=== PATIENT | male | born 1975 | race Caucasian/White ===

== ENCOUNTER → 2016-09-29 | Day surgery (SDC) | payer OTHER ==
[~2016-09-29] VITALS: Ht 180.3 cm; Wt 68.0 kg
--- NOTE | 2016-10-01 11:22 | Operative Report ---
Operative/Inv Procedure Report Surgery Date: 09/29/16 Name of Procedure: Laparoscopic preperitoneal mesh repair of left inguinal hernia Pre-Operative Diagnosis: Left inguinal hernia Post-Operative Diagnosis: Same, indirect Estimated Blood Loss: scant Surgeon/Communications Program Manager: JEREMY MANZANARES,MARK FYA Anesthesia: general endotracheal tube Operative/Procedure Note Note: Patient was positioned supine on the table. After successful induction of general anesthesia the inguinal and surrounding areas were clipped prepped and draped in the usual sterile fashion. After injection of local anesthetic at the bottom of the umbilicus off the midline to the left a 1 1/2 cm curved incision was made with a 15 blade, then deepened through Shelley's fascia, sweeping off the rectus sheath. A horizontal 1-1/2 cm incision was made between the fibers, elevating these edges with 0 Vicryl stay sutures. Then retracting the muscle laterally, clearing off the posterior rectus sheath, this space is developed down the midline to the pubis sequentially, with an S retractor, a peanut dissector, then the balloon-camera device, inflating it 30-40 pumps while watching how it opens up the space, keeping the epigastrics up. The balloon is then replaced with a 10 mm Cox trocar, inserted, shortened, and secured with the stay sutures, gas turned on to 12 not 15 mm. Then two 5 mm trochars are inserted in the midline just below the camera, spaced by approximately 3 cm. Using mostly blunt dissection with peanuts to define the anatomy, first Kwesi's ligament is swept off medially, checking the medial spaces, direct and femoral. There were no hernias there. Then briefly skipping over the area of the iliac fat pad, we developed the iliopubic tract out laterally to the iliac crest. Then we returned to the area of the fat pad where the hernia sac and the cord structures are adherent, coursing up into an attenuated deep ring. The cord structures form a triangle with the vas approaching medially and the main vessels approaching laterally, with the apex at the deep ring. There was some preperitoneal fat up inside in front that was dragged down and out, helping identify the distal lip of the hernia sac, it was long and tenacious, which is then carefully peeled off the cord structures, especially the vas. The cord is also from the underlying iliac fat. Once the hernia sac is from the cord structures down to the base of this "triangle," a Parietex sided mesh with the suture, is marked and stuffed down the camera trocar, then unfurled in a systematic fashion, first with the smaller leaflet passing behind the cord structures, until the flap covers the epigastrics, covering the deep ring, then the larger leaflet is released from the suture, double-covering the smaller one, but also extends laterally out to the iliac crest, medially over Kwesi's ligament, and superiorly towards the camera. There is a third part of the mesh, that covers the iliac fat pad like a skirt. The mesh was adjusted back and forth so that the keyhole is centered around the cord, lays flat and the edges are not curling. A trial run of letting the gas escape a little bit to see how the mesh would lay as the peritoneum comes back down is done, then when we' re satisfied, we let rest of the gas escape, pulling out the instruments and trochars. The fascia is closed with a [id number] 0 Vicryl suture, tying the stay sutures on top. Then we closed the 3 skin incisions with interrupted 4-0 Monocryl, 3 for the umbilical, one each for the smaller ones, followed by Mastisol, Steri-Strips and Band-Aids. Overall estimated blood loss was minimal, lap and sponge counts were correct, wound expectancy was clean, IV fluids crystalloid, complications none, patient tolerated the procedure well, he was quite active after extubation and was returned to the recovery room in satisfactory condition, at that time I didn't palpate a recurrence.
== END ==
LOC: STS 02:12
DX: K40.90 Unilateral inguinal hernia, without obstruction or gangrene, not specified as recurrent (principal); F17.200 Nicotine dependence, unspecified, uncomplicated
CPT/HCPCS: C1781; J0690; J2250

== ENCOUNTER 2016-10-10 17:19 | Emergency (ER) | payer OTHER ==
[~2016-10-10] VITALS: Ht 180.3 cm; Wt 70.3 kg
[2016-10-10 17:21] VITALS: BP 135/75
--- NOTE | 2016-10-10 17:57 | ED GI/GU/ABDOMINAL COMPLAINT ---
History of Present Illness General Chief Complaint: Abdominal Pain/Flank Pain Stated Complaint: ? STRANGULATED HERNIA Source: patient Exam Limitations: no limitations Vital Signs & Intake/Output Vital Signs & Intake/Output Vital Signs Date Time Temp Pulse Resp B/P B/P Pulse O2 O2 Flow FiO2 Mean Ox Delivery Rate 10/10 1721 98.7 70 20 135/75 98 Room Air Allergies Coded Allergies: No Known Allergies (09/25/16) Reconcile Medications No Known Home Medications Triage Note: PT TO ED C/O BUMP IN TESTICLE. PT IS S/P LAPROSCOPIC HERNIA REPAIN WITH MESH HERE ON 09/29. STATES TODAY AFTER HIS SHOWER HE NOTICED A "BUMP" IN HIS TESTICLE. PT STATES "I THINK I HAVE A STRANGULATED HERNIA". Triage Nurses Notes Reviewed? yes Onset: Abrupt Duration: hour(s): Timing: single episode today Quality/Severity: mild Location: groin (left) Prior Abdominal Problems: L inguinal hernia repain 09/29/16 HPI: 41-year-old male with history of left inguinal hernia status post repair on 01/[address] Hinojosa presents to emergency department complaining of lump inguinal area noticed today. Patient states that following his surgery he was doing well, did not have pain or skin gages or lump, today in the shower he noticed new lump in his inguinal area as well as his left testicle. He states he feels discomfort in that area as if he "Knows something is there"and he rates it at about 2-3/10 on pain scale. He denies fevers, chills, abdominal pain, nausea, vomiting, diarrhea, constipation. (ANALI BRAGA,DEION ARMANDO) Past History Travel History Traveled to [place] past 21 day No Medical History Any Pertinent Medical History? see below for history Gastrointestinal: Left inguinal hernia Surgical History Surgical History: hernia repair-inguinal (Left on 09/29/16) Psychosocial History What is your primary language Thai Tobacco Use: Current Daily Use Daily Tobacco Use Amount/Type: => 5 Cigarettes daily ETOH Use: denies use Illicit Drug Use: denies illicit drug use Family History Hx Contributory? No (DEION BRIONES PA-C) Review of Systems Review of Systems Constitutional: Reports: no symptoms. EENTM: Reports: no symptoms. Respiratory: Reports: no symptoms. Cardiovascular: Reports: no symptoms. GI: Reports: see HPI. Genitourinary: Reports: see HPI. Musculoskeletal: Reports: no symptoms. Skin: Reports: no symptoms. Neurological/Psychological: Reports: no symptoms. Hematologic/Endocrine: Reports: no symptoms. Immunologic/Allergic: Reports: no symptoms. All Other Systems: Reviewed and Negative (DEION BRIONES PA-C) Physical Exam Physical Exam Gastrointestinal: SEE BELOW Comments: Well-developed well-nourished person in no acute distress HEENT: HEAD is atraumatic, normocephalic Neck: Supple,, normal range of motion without pain or tenderness Back: Nontende, Full range of motion Cardiovascular: Regular rate and rhythms no murmurs rubs or gallops Respiratory: No respiratory distress. Patient speaking in full complete sentences. Breath sounds clear to auscultation bilaterally: NO W/R/R Abdomen: Soft, nontender nondistended, no appreciable organomegaly. Normal bowel sounds. No rebound/guarding, No appreciable enlargement of the abdominal aorta, No ascites. Genitals: left inguinal buldge, soft, left testicular buldge, soft reducible, nontender Extremity: No edema, full range of motion of extremities, Neuro: Alert oriented x3, motor sensory normal, There were no obvious focal neurologic abnormalities. Skin: No appreciable rash on exposed skin, skin is warm and dry. Psych: Mood and affect is normal, memory and judgment is normal. Core Measures ACS in differential dx? No Severe Sepsis Present: No Septic Shock Present: No (DEION BRIONES PA-C) Progress Differential Diagnosis: hernia, orchitis, varicocele, epididymitis, incarcerated hernia Plan of Care: Orders Procedure Date/time Status COMPREHENSIVE METABOLIC PANEL 10/10 1752 Active CBC WITHOUT DIFFERENTIAL 10/10 1752 Complete Laboratory Tests 10/10/16 1819: Sodium Pending, Potassium Pending, Chloride Pending, Carbon Dioxide Pending, Anion Gap Pending, BUN Pending, Creatinine Pending, BUN/Creatinine Ratio Pending , Glucose Pending, Calcium Pending, Total Bilirubin Pending, AST Pending, ALT Pending, Alkaline Phosphatase Pending, Total Protein Pending, Albumin Pending, Globulin Pending, Albumin/Globulin Ratio Pending, CBC w Diff NO MAN DIFF REQ, RBC 4.30 L, MCV 92.5, MCH 31.6 H, RDW 13.3, MPV 6.4 L, Gran % 58.0, Lymphocytes % 29.9, Monocytes % 5.6, Eosinophils % 5.6 H, Basophils % 0.9, Absolute Granulocytes 4.6, Absolute Lymphocytes 2.4, Absolute Monocytes 0.4, Absolute Eosinophils 0.4, Absolute Basophils 0.1, PUBS MCHC 34.[address] Neumann regarding patient. Will obtain CT scan to assess for inguinal hernia. 7:18PM - spoke with Dr. Rocha regarding patient and CT scan results. He confirms that this is normal postoperative fluid from inguinal hernia repair on 09/29 and that it can be normal to begin 1-2 weeks following surgery. He states to reassure patient and have patient follow-up with Olaf Espinoza MD in the office this week. Imaging results and lab work discussed with patient in detail. The patient was instructed to follow-up with Olaf Espinoza MD in the office this week. The patient is in agreement with the plan of care. He is in no acute distress, his vital signs are stable, he is nontoxic appearing. (ANALI BRAGA,DEION ARMANDO) Diagnostic Imaging: Viewed by Me: CT Scan. Discussed w/RAD: CT Scan. Radiology Impression: PATIENT: BEAU HAWLEY PRESENT AGE: 41 PATIENT ACCOUNT NO: [id number] : 76 LOCATION: [facility] ORDERING PHYSICIAN: DEION BRIONES PA-C SERVICE DATE: 10/10/16 EXAM TYPE: CAT - CT ABD & PELVIS W/O IV CONTRAS EXAMINATION: CT ABDOMEN AND PELVIS WITHOUT CONTRAST CLINICAL INFORMATION: Inguinal bulge. COMPARISON: None TECHNIQUE: Multidetector volumetric imaging was performed from the superior aspect of the liver through the pubic symphysis. Sagittal and coronal reformatted images were obtained on the technologist's workstation. DLP: 302.53 mGy-cm FINDINGS: LUNG BASES: The visualized lung bases are unremarkable. LIVER, GALLBLADDER, AND BILIARY TREE: The liver is normal in size, shape, and attenuation. 1.2 cm hypodense lesion with sharply margins most likely due to a hepatic cyst at the central right lobe of liver, axial image 146 (3). No suspicious liver lesion. The gallbladder is unremarkable with no evidence of radiopaque gallstones, gallbladder wall thickening, or obvious pericholecystic inflammatory changes. PANCREAS: Unremarkable. SPLEEN: Unremarkable. ADRENAL GLANDS: Unremarkable. KIDNEYS AND URETERS: The kidneys are normal in size, shape , and attenuation. No hydronephrosis, hydroureter, or calculi seen. No perinephric stranding. BLADDER: Unremarkable. GASTROINTESTINAL TRACT: The small and large bowel are unremarkable. The appendix is normal. No inflammation the mesentery. ABDOMINAL WALL: There is a left inguinal hernia. This contains fluid and fat. Hernia measures 4.2 cm transverse by 1.8 cm AP. LYMPH NODES: Normal. VASCULAR: Unremarkable. PELVIC VISCERA: Unremarkable. OSSEOUS STRUCTURES: Vacuum disc phenomenon L5-S1 with disc height narrowing and endplate sclerosis and small spurs of the vertebrae. IMPRESSION: Left inguinal hernia containing fat and fluid. DICTATED BY: MAREN RUVALCABA MD DATE/TIME DICTATED:10/10/161813 TRANSPORTATION DIRECTOR:JEFF DATE/TIME TRANSCRIBED:10/10/161813 CONFIDENTIAL, DO NOT COPY WITHOUT APPROPRIATE AUTHORIZATION. <Electronically signed in Other Vendor System> SIGNED BY: MAREN RUVALCABA MD 10/10/161828 Initial ED EKG: none (ANALI BRAGA,DEION ARMANDO) Departure Departure Disposition: HOME OR SELF CARE Condition: Stable Clinical Impression Primary Impression: Lump in the groin Referrals: PATIENT HAS NO PRIMARY CARE DR (PCP/Family) Additional Instructions: As discussed, follow-up with Olaf Espinoza MD in the office this week. Take Tylenol or Motrin as prescribed as needed for pain. Return with any worsening symptoms or concerns. Please note that there might be incidental findings in your evaluation that are unrelated to the current emergency department visit. Please notify your primary care doctor about this emergency department visit in order to obtain and review all of the testing performed so that these incidental findings can be monitored as needed. If you had an x-ray performed, please understand that some fractures may not be seen on the initial set of x-rays. If your symptoms persist you might need a repeat set of x-rays to check for such a fracture. If you're unable to follow up as outlined in the discharge instructions please return to the emergency department. Thank you for choosing the [facility] Emergency Department for your care. It was a pleasure to serve you today. Departure Forms: Customer Survey General Discharge Information Prescriptions: Current Visit Scripts No Known Home Medications (ANALI BRAGA,DEION ARMANDO) PA/BANK OFFICER Co-Sign Statement Statement: ED Attending supervision documentation- I saw and evaluated the patient. I have also reviewed all the pertinent lab results and diagnostic results. I agree with the findings and the plan of care as documented in the PA's/BANK OFFICER's documentation. x I have reviewed the ED Record and agree with the PA's/BANK OFFICER's documentation. [] Additions or exceptions (if any) to the PAs/BANK OFFICER's note and plan are summarized below: [] (HALLIE MANZANARES,LYLE)
--- NOTE | 2016-10-10 18:29 | CT SCAN REPORT ---
EXAMINATION: CT ABDOMEN AND PELVIS WITHOUT CONTRAST CLINICAL INFORMATION: Inguinal bulge. COMPARISON: None TECHNIQUE: Multidetector volumetric imaging was performed from the superior aspect of the liver through the pubic symphysis. Sagittal and coronal reformatted images were obtained on the technologist's workstation. DLP: 302.53 mGy-cm FINDINGS: LUNG BASES: The visualized lung bases are unremarkable. LIVER, GALLBLADDER, AND BILIARY TREE: The liver is normal in size, shape, and attenuation. 1.2 cm hypodense lesion with sharply margins most likely due to a hepatic cyst at the central right lobe of liver, axial image 146 (3). No suspicious liver lesion. The gallbladder is unremarkable with no evidence of radiopaque gallstones, gallbladder wall thickening, or obvious pericholecystic inflammatory changes. PANCREAS: Unremarkable. SPLEEN: Unremarkable. ADRENAL GLANDS: Unremarkable. KIDNEYS AND URETERS: The kidneys are normal in size, shape, and attenuation. No hydronephrosis, hydroureter, or calculi seen. No perinephric stranding. BLADDER: Unremarkable. GASTROINTESTINAL TRACT: The small and large bowel are unremarkable. The appendix is normal. No inflammation the mesentery. ABDOMINAL WALL: There is a left inguinal hernia. This contains fluid and fat. Hernia measures 4.2 cm transverse by 1.8 cm AP. LYMPH NODES: Normal. VASCULAR: Unremarkable. PELVIC VISCERA: Unremarkable. OSSEOUS STRUCTURES: Vacuum disc phenomenon L5-S1 with disc height narrowing and endplate sclerosis and small spurs of the vertebrae. IMPRESSION: Left inguinal hernia containing fat and fluid.
[2016-10-10 18:32] LABS: ABSOLUTE BASOPHIL COUNT 0.1 /CUMM (0.0-0.2); ABSOLUTE EOSINOPHIL COUNT 0.4 /CUMM (0.0-0.7); ABSOLUTE GRANULOCYTE CT 4.6 /CUMM (1.4-6.5); ABSOLUTE LYMPH COUNT 2.4 /CUMM (1.2-3.4); ABSOLUTE MONOCYTE COUNT 0.4 /CUMM (0.10-0.60); BASOPHIL % 0.9 % (0.0-2.0); EOSINOPHIL % 5.6 % (0-5); HEMATOCRIT 39.8 % (42-52); MEAN CORPUSCULAR HGB 31.6 PG (27.0-31.0); MEAN CORPUSCULAR HGB CONC 34.2 G/DL (33.0-37.0); MEAN CORPUSCULAR VOLUME 92.5 FL (80.0-94.0); MEAN PLATELET VOLUME 6.4 FL (7.4-10.4); PLATELET COUNT 246 /CUMM (130-400); RBC DISTRIBUTION WIDTH 13.3 % (11.5-14.5)
== END 2016-10-10 19:58 ==
LOC: ERH 17:19
PROVIDERS: Physician Assistant
DX: R19.09 Other intra-abdominal and pelvic swelling, mass and lump (principal)
CPT/HCPCS: 74176

== ENCOUNTER → 2017-10-19 | Day surgery (SDC) | payer OTHER ==
[~2017-10-19] VITALS: Ht 152.4 cm; Wt 72.6 kg
[~2017-10-19] MED LIST: PERCOCET 5-3251 EACH PO
--- NOTE | 2017-10-19 11:24 | Operative Report ---
Operative/Inv Procedure Report Surgery Date: 10/19/17 Name of Procedure: Robotic laparoscopic mesh repair of right inguinal hernia Pre-Operative Diagnosis: Right inguinal hernia Post-Operative Diagnosis: Same, indirect Estimated Blood Loss: scant Surgeon/Musical String Maker: Olga MANZANARES,Olaf FAY Anesthesia: general endotracheal tube Operative/Procedure Note Note: Patient was positioned supine. After successful induction of general anesthesia , the abdomen was prepped and draped in usual sterile fashion, based on body habitus we aimed our 3 trocar sites to be in the mid-epigastrium: the middle and 2 bilateral, aiming to the right lower quadrant, local anesthetic was injected in a spot left lateral subcostal, a 1 cm incision was made with a 15 blade and then using a 5 mm optical trocar inserted into the 8 mm robotic trocar, attached to a 5 mm camera and the trocar was advanced through the abdominal wall watching on the screen, as the trocar passes through the layers, alternating colors, yellow fat white fascia red muscle, until the tip just seems to keller the inner thin peritoneal layer. At that point, I stop pushing and check if it's open by turning on the gas. If the belly insufflates then you know you can advance the trocar into an empty space more directly without injuring the viscera into the peritoneum and then the gas was turned on to 15 mm. We placed the other two 8 mm robotic trochars while watching with the camera bilaterally roughly in the same line, symmetrically.Then the Robot was moved to the patient, then docked and targeted. At this point you could see the right inguinal hernia, (and also the left sided repair which was intact) with adherent fat going up into the defect. We then developed / started the peritoneal flap horizontally at the level of the iliac crest starting laterally to medial to umbilical ligament with cautery and then dissected within the flap the inguinal anatomy. Using mostly blunt dissection with a bipolar fenestrated grasper and a scissors, first Kwesi's ligament is swept off medially, checking the medial spaces, direct and femoral. There were no hernias there. Then briefly skipping over the area of the iliac fat pad, we developed the iliopubic tract out laterally to the iliac crest. Then we returned to the area of the fat pad, laterally where the hernia sac and cord structures were adherent, coursing up into an attenuated deep ring. There was some preperitoneal fat up inside in front that was dragged down and out, along with the lip of the peritoneal sac down off the cord structures which form a triangle, blood vessels approaching laterally the vas medially with the apex at the deep ring, it was an attenuated sac but we did not put a hole in it. Once the hernia sac is from the vas / cord down to the below Kwesi's medially at the bladder, and laterally the iliopubic tract below this, a Parietex sided mesh without the keyhole or the suture, is marked and stuffed down the camera trocar, then unfurled in a systematic fashion, to cover both the hernia and the direct spaces and to make sure its tucked below Kwesi's ligament and in that crevice Retzius space by the bladder and laterally beneath the iliopubic tract without curling and superiorly towards the camera. There is a seamed part of the mesh, that covers the iliac fat pad like a skirt. The mesh was adjusted back and forth so the edges are not curling. There was some preperitoneal fat that we had brought down that helped hold the mesh down inferiorly, I placed 3 tacking sutures 3-0 Vicryl 1 on each side of the epigastrics and one lower at the top of Kwesi's medially. Then we brought up the peritoneal flap and sewed it shut across with a 2-0 V lock. We then checked again for holes, then undocked, let rest of the gas escape, pulling out the instruments and trochars. Then we closed the 3 skin incisions with interrupted 4 -0 Monocryl followed by Mastisol, Steri-Strips and Band-Aids. Overall estimated blood loss was minimal, lap and sponge counts were correct, wound expectancy was clean, IV fluids crystalloid, complications none, patient tolerated the procedure well, did not significantly benavides during extubation and was returned to the recovery room in satisfactory condition.
== END ==
LOC: STS 08-31 07:00
DX: K40.90 Unilateral inguinal hernia, without obstruction or gangrene, not specified as recurrent (principal); F17.200 Nicotine dependence, unspecified, uncomplicated
CPT/HCPCS: 49650; 64488; S2900; C1781; C9290; J0131; J0690; J2250; J2405